=== PATIENT | male | born 1975 | race Caucasian/White ===

== ENCOUNTER 2020-04-08 09:58 | Emergency (ER) | payer OTHER, SELFPAY ==
[2020-04-08 10:00] VITALS: BP 137/65; PULSE 86; RESP 18; TEMP 36.8; O2SAT 99; BMI 32.5
--- NOTE | 2020-04-08 10:03 | XR_ITS ---
PROCEDURE: XR FINGER LT MIN 2V CLINICAL INDICATION: left 5th digit pain, after moving heavy object COMPARISON: No exams were available for comparison FINDINGS: No fracture or dislocation. No lytic or blastic change. There is normal mineralization. The joint spaces are well-preserved. No significant degenerative/arthritic changes. No erosive changes evident. Other findings:None. IMPRESSION: No acute findings. Dictated by: Les Morgan MD 04/08/2020 10:50 Les Morgan MD in [place] 04/08/2020 10:50
--- NOTE | 2020-04-08 10:03 | HMH.EDUPEXT ---
ED Disposition Clinical Impression: Finger laceration Qualifiers: Encounter type: initial encounter Finger: little finger Damage to nail status: without damage Foreign body presence: without foreign body Laterality: right Qualified Code(s): S61.216A - Laceration without foreign body of right little finger without damage to nail, initial encounter Disposition: Home, Self-Care Condition on Discharge: Good Instructions: DI for Laceration Repair -- Finger Additional Instructions: Follow-up with your primary care provider within 2 to 3 days for wound and mobility check. Return to the emergency department for any fever or signs of infection, foul-smelling drainage, increasing pain, other acute new concerns. Sutures to be removed in 7-10 days. Referrals: Daniel Chilel [Primary Care Provider] - 3 days - Critical Care Critical Care Time: No Attestation: On , the high probability of a clinically significant, sudden or life threatening deterioration of the following system(s) required my full and direct attention, intervention and personal management. The time I documented below is in addition to time spent performing reported procedures but includes the following listed in this critical care notation. Medical Decision Making - Medical Records Medical records reviewed: Yes: I reviewed the patient's medical records. - Lg Inquiry Pt receiving controlled substance: No Vital Signs: 04/08/20 10:00 Temperature 98.3 F Temperature Source Oral Pulse Rate [Left Radial] 86 Respiratory Rate 18 Blood Pressure [Right Arm] 137/65 Blood Pressure Mean [Right Arm] 89 Blood Pressure Source [Right Arm] Automatic Cuff Blood Pressure Position [Right Arm] Sitting 02 Sat by Pulse Oximetry 99 Oxygen Delivery Method Room Air Orders (Tests/Meds): ED MEDICATIONS Discontinued Medications Generic Name Dose Route Start Last Admin Trade Name Freq PRN Reason Stop Dose Admin Tetanus/Reduced Diphtheria/Acell Pertussis 0.5 ml 04/08/20 10:10 Adacel Tdap 0.5ml Syringe IM 04/08/20 10:11 .ONCE ONE ORDERS Category Date Time Status Finger XR left minimum 2 views [XR finger LT min 2V] Exams 04/08/20 10:03 Taken Stat - Radiology Data #1 Image(s): Finger(s)/Thumb Image Reviewed: Yes I reviewed the patient's radiology image Preliminary Findings: No Fracture Seen Medical Decision Narrative: Patient with laceration to the right fifth digit. No apparent tendon involvement at this time. Repaired as below. Advised to follow-up with primary care provider for wound/mobility check in the next 2 to 3 days and suture removal within 7 to 10 days. Upper Extremity HPI - General Stated Complaint: ao04/08/20 right hand pinkie Time Seen by Provider: 04/08/20 10:03 Mode of Arrival: Ambulatory Source of Information: Patient Limitations: No Limitations - History of Present Illness HPI narrative: This is a 44-year-old [id number] male who presents to the emergency department for laceration to the left small finger on the radial aspect. Injury occurred just prior to arrival. Unknown tetanus status. He was lifting a large cooler when his hand became crushed under the cooler and he cut his hand on a metal piece, sustained the laceration. - Related Data Home Medications Medication Instructions Recorded Confirmed lisinopril 20 mg tablet 20 mg PO QDAY 08/26/17 04/08/20 Allergies Allergy/AdvReac Type Severity Reaction Status Date / Time No Known Allergies Allergy Verified 10/23/18 13:09 [facility] History - Hepatitis A Screen Attestation statement:: This patient has been screened for Hepatitis A risk factors. I have reviewed the patient's past medical history: Yes Medical History: Reports:: Hypertension Other Surgeries: Yes: No Previous Surgery, Other Comment: Oral Surgery (wisdom teeth) - Social History Smoking Status: Never smoker Alcohol Intake: never Substance Use Type: other Occupat
[2020-04-08 11:11] VITALS: BP 137/65; PULSE 86; RESP 18; TEMP 36.8; O2SAT 99
== END 2020-04-08 11:12 | disposition home or self-care (01) ==
PROVIDERS: Emergency Provider Emergency Medicine; PCP Internal Medicine
DX: S61.216A Laceration without foreign body of right little finger without damage to nail, initial encounter (principal); Z23 Encounter for immunization; I10 Essential (primary) hypertension; W26.8XXA Contact with other sharp object(s), not elsewhere classified, initial encounter; Y99.0 Civilian activity done for income or pay
CPT/HCPCS: 12001; 73140; 90471; 90715; 99282

== ENCOUNTER 2020-07-24 15:00 | Outpatient (RCR) | payer BC, SELFPAY | END 2020-07-24 15:05 | disposition home or self-care (01) | LOC: PT 15:00 | PROVIDERS: PCP Internal Medicine; Visit Provider Orthopaedic Surgery Adult Reconstructive Orthopaedic Surgery | DX: Z96.642 Presence of left artificial hip joint; M25.552 Pain in left hip | CPT/HCPCS: 97010; 97014; 97110; 97140; 97163; 97164; G0283 ==

== ENCOUNTER 2021-03-08 17:29 | Observation (INO) | payer BC, SELFPAY ==
[2021-03-08] VITALS (7 sets, daily range): BP systolic 103–133; BP diastolic 58–79; PULSE 76–87; RESP 13–18; TEMP 36.7–38.1; O2SAT 97–100; BMI 33.9; BMI 35.4
--- NOTE | 2021-03-08 17:36 | ECG_ITS ---
APPROVED REPORT Exam: Resting ECG HR:73 bpm ECG Measurements Heart Rate 73 AXES GA 148 P 31 QRSd 114 QRS 47 QT 364 T 30 QTc 401 Conclusion Normal sinus rhythm Normal ECG Electronically signed by : Ciro Hayes, 03/09/2021 20:40:25
--- NOTE | 2021-03-08 17:37 | CT_ITS ---
PROCEDURE INFORMATION: Exam: CT Head Without Contrast Exam date and time: 03/08/2021 5:37 PM Age: 45 years old Clinical indication: Syncope and collapse TECHNIQUE: Imaging protocol: Computed tomography of the head without contrast. Radiation optimization: All CT scans at this facility use at least one of these dose optimization techniques: automated exposure control; mA and/or kV adjustment per patient size (includes targeted exams where dose is matched to clinical indication); or iterative reconstruction. COMPARISON: No relevant prior studies available. FINDINGS: Brain: No large territorial infarction. No hemorrhage. No mass effect or midline shift. Cerebral ventricles: No ventriculomegaly. Paranasal sinuses: Mucosal thickening of the paranasal sinuses. No air fluid level. Mastoid air cells: Visualized mastoid air cells are well aerated. Bones/joints: No acute fracture. Soft tissues: No significant soft tissue abnormality. IMPRESSION: No acute findings.
[2021-03-08 17:54] LABS: Coronavirus 19, PCR Not Detected (NotDetected); Influenza A, PCR Not Detected (NotDetected); Influenza B, PCR Not Detected (NotDetected)
--- NOTE | 2021-03-08 18:00 | HMH.EDGENADL ---
ED Disposition Clinical Impression: MARY ANN (acute kidney injury), Abnormal EKG Syncope Qualifiers: Syncope type: unspecified Qualified Code(s): R55 - Syncope and collapse Disposition: Admitted as Observation Condition on Discharge: Good Referrals: Daniel Chilel [Primary Care Provider] - Time of Disposition: 19:11 - Critical Care Critical Care Time: No Attestation: On 03/08/21, the high probability of a clinically significant, sudden or life threatening deterioration of the following system(s) required my full and direct attention, intervention and personal management. The time I documented below is in addition to time spent performing reported procedures but includes the following listed in this critical care notation. Medical Decision Making - Medical Records Medical records reviewed: Yes: I reviewed the patient's medical records. - Lg Inquiry Pt receiving controlled substance: No Vital Signs: 03/08/21 17:31 Temperature 98.4 F Temperature Source Oral Pulse Rate [Right Radial] 87 Respiratory Rate 18 Blood Pressure [Right Arm] 118/79 Blood Pressure Mean [Right Arm] 92 Blood Pressure Source [Right Arm] Automatic Cuff Blood Pressure Position [Right Arm] Sitting 02 Sat by Pulse Oximetry 99 Oxygen Delivery Method Room Air - Lab Data Lab results reviewed: Yes: I reviewed the patient's lab results. Lab Results 03/08/21 17:43: SARS-CoV-2 (PCR) Not detected, Influenza A Untype (PCR) Not detected, Influenza Type B (PCR) Not detected 03/08/21 17:58: WBC 12.3 H, RBC 5.15, Hgb 15.1, Hct 43.2, MCV 83.8, MCH 29.3, MCHC 35.0, RDW 13.1, Plt Count 161, MPV 8.8, Neut % (Auto) 85.2 H, Lymph % (Auto) 7.5 L, Young % (Auto) 3.4, Eos % (Auto) 3.7, Baso % (Auto) 0.3, Neut # (Auto) 10.5 H, Lymph # (Auto) 0.9, Young # (Auto) 0.4, Eos # (Auto) 0.5 H, Baso # (Auto) 0.0, Total Counted 100, Neutrophils % (Manual) 82 H, Lymphocytes % (Manual) 13, Monocytes % (Manual) 3, Eosinophils % (Manual) 2, Platelet Estimate Normal, RBC Morphology Normal 03/08/21 17:58: Sodium 137, Potassium 3.6, Chloride 100, Carbon Dioxide 28, Anion Gap 12.6, BUN 15, Creatinine 1.30 H, Estimated Creat Clear 113, Estimated GFR 59, Est GFR ( Amer) 72, Glucose 148 H, Calcium 8.9, Total Bilirubin 1.1, AST 28, ALT 19, Alkaline Phosphatase 69, Troponin I < 0.01, Total Protein 7.4, Albumin 4.6, Globulin 2.8, Albumin/Globulin Ratio 1.6 Result diagrams: 03/08/21 17:58 03/08/21 17:58 Orders (Tests/Meds): ED MEDICATIONS Generic Name Dose Route Start Last Admin Trade Name Freq PRN Reason Stop Dose Admin Lactated Ringer's 1,000 mls @ 999 mls/hr 03/08/21 18:45 Lactated Ringer's 1000 Ml Bag IV 03/08/21 19:45 .Q1H1M [facility] ORD[facility] Category Date Time Status Drug Screen,Urine Stat Lab 03/08/21 17:37 Ordered Troponin I Q3H Lab 03/08/21 20:45 Ordered Troponin I Q3H Lab 03/08/21 23:45 Ordered Urinalysis and Microscopic Stat Lab 03/08/21 17:36 Ordered - CT Data CT Scan: Head Time Received: 17:[address] Reviewed: Yes: I have reviewed the patient's CT results Preliminary Findings: Normal/NAD - ECG Data Tracing #1 I reviewed this ECG and interpreted as documented below: Rhythm 73 bpm, normal intervals, no ectopy, mild ST elevation in V1 and V2, mild depression in lead III. Abnormal EKG ECG initial impression date: 03/08/21 ECG initial impression time: 17:56 Medical Decision Narrative: 45yo M evaluated for syncope. Differential diagnosis includes was not limited to: TIA/CVA, arrhythmia, GA, electrolyte abnormality, brain mass. Patient in no acute distress on initial evaluation. Neurologically he is completely normal. Sent for CT of the head, EKG is obtained and reviewed as above. Routine laboratory studies were ordered. Laboratory studies and CT head are unremarkable, including a Covid swab. Recommend admission for observation given syncopal episode. Also patient does have some abnormal findings on his EKG. Findings discussed with
[2021-03-08 18:08] LABS: Basophils % 0.3 % (0.1-2.0); Eosinophils # 0.5 K/mm3 (0.0-0.4); Eosinophils % 3.7 % (0.1-12.0); Hematocrit 43.2 % (42.0-52.0); Hemoglobin 15.1 g/dL (14.1-18.0); Lymphocytes # 0.9 K/mm3 (0.7-4.5); Lymphocytes % 7.5 % (10-50); Mean Corpuscular Hemoglobin 29.3 pg (27.0-31.2); Mean Corpuscular Volume 83.8 fl (80-94); Mean Platelet Volume 8.8 fl (7.4-10.4); Monocytes # 0.4 K/mm3 (0.1-1.0); Monocytes % 3.4 % (1.7-9.3); Neutrophils # 10.5 K/mm3 (1.8-7.8); Neutrophils % 85.2 % (37.0-80.0); Platelet Count 161 K/mm3 (142-424); Red Blood Count 5.15 M/mm3 (4.60-6.20); Red Cell Distribution Width 13.1 % (11.5-17.5); White Blood Count 12.3 K/mm3 (4.8-10.8)
[2021-03-08 18:10] LABS: MANUAL DIFFERENTIAL MANUAL DIFFERENTIAL (MANUAL DIFF)
[2021-03-08 18:18] LABS: Eosinophils % 2 % (0-3); Lymphocytes % 13 % (10-50); Monocytes % 3 % (2-9); Neutrophils % 82 % (42-76); Platelet Estimate Normal; RBC Morphology Normal; Total Cells Counted 100
[2021-03-08 18:23] LABS: Alanine Aminotransferase 19 U/L (12-78); Albumin Level 4.6 g/dl (3.5-5.0); Albumin/Globulin Ratio 1.6 (1.1-1.8); Alkaline Phosphatase 69 U/L (38-126); Aspartate Amino Transferase 28 U/L (17-59); Bilirubin,Total 1.1 mg/dl (0.2-1.3); Blood Urea Nitrogen 15 mg/dl (9-20); Calcium 8.9 mg/dl (8.4-10.2); Carbon Dioxide 28 mmol/L (22.0-30.0); Creatinine Clearance Estimated 113 mL/min (50-200); Estimated Glomerular Filt Rate 59 ml/min (>60); GFR (African American) 72 ML/MIN (>60); Globulin 2.8 g/dL (1.3-3.2); Glucose 148 mg/dl (74-100); Potassium 3.6 mmoL/L (3.5-5.1); Sodium 137 mmol/L (136-145); Total Protein,Serum 7.4 g/dl (6.3-8.2)
[2021-03-08 18:32] LABS: Anion Gap 12.6 mEq/L (5-15); Chloride 100 mmol/L (98-107)
[2021-03-08 18:35] LABS: Troponin I < 0.01 ng/ml (0.00-0.034)
--- NOTE | 2021-03-08 19:21 | PC.NURSE ---
Attempted to call report to 2nd nh, no answer. Will call back.
--- NOTE | 2021-03-08 19:45 | PC.NURSE ---
gave report to Princess Walden RN
--- NOTE | 2021-03-08 19:56 | PC.NURSE ---
PT ARRIVED TO FLOOR VIA W/C FROM ED W/STAFF AT 1955
[2021-03-08 21:29] LABS: Troponin I < 0.01 ng/ml (0.00-0.034)
[2021-03-08 21:40] LABS: Microscopic, Urine URINE MICROSCOPIC (MICROSCOPIC)
[2021-03-08 21:43] LABS: Appearance,Urine CLEAR (Clear); Bilirubin,Urine Negative (Negative); Blood, Urine Negative (Negative); Color,Urine YELLOW (Yellow); Glucose,Urine (UA) Negative (Negative); Ketones,Urine Negative (Negative); Leukocyte Esterase,Urine Negative (Negative); Nitrate,Urine Negative (Negative); Protein,Urine Negative (Negative); Urobilinogen,Urine 0.2 EU/dl (0.2)
[2021-03-08 21:59] LABS: Barbiturates Screen,Urine Negative ng/ml (<200); Benzodiazepines Screen,Urine Negative ng/ml (<200)
[2021-03-08 22:00] LABS: Amphetamine/Metha Screen,Urine Negative ng/ml (<1000)
[2021-03-08 22:01] LABS: Cannabinoid Screen,Urine Negative ng/ml (<50); Cocaine Screen,Urine Negative ng/ml (<300)
[2021-03-08 22:02] LABS: Methadone Screen,Urine Negative ng/ml (<300); Opiate Screen,Urine Negative ng/ml (<300)
[2021-03-08 22:03] LABS: Phencyclidine Screen,Urine Negative ng/ml (<25)
[2021-03-09] VITALS: BP 138/68; PULSE 64; PULSE 70; RESP 16; TEMP 37.2; O2SAT 98
[2021-03-09 00:46] LABS: Troponin I < 0.01 ng/ml (0.00-0.034)
[2021-03-09 04:00] VITALS: BP 107/52; PULSE 70; RESP 18; TEMP 36.6; O2SAT 97
[2021-03-09 05:00] VITALS: BMI 74.3
--- NOTE | 2021-03-09 06:36 | PC.NURSE ---
Patient voiced no concerns this shift. No s/s of acute distress noted, call light within reach, bed at lowest level for safety, will continue to monitor.
[2021-03-09 07:46] VITALS: BP 118/74; PULSE 79; RESP 18; TEMP 36.5; O2SAT 98
[2021-03-09 07:52] LABS: Basophils % 0.3 % (0.1-2.0); Chloride 102 mmol/L (98-107); Eosinophils # 0.2 K/mm3 (0.0-0.4); Eosinophils % 2.5 % (0.1-12.0); Hematocrit 41.5 % (42.0-52.0); Hemoglobin 14.5 g/dL (14.1-18.0); Lymphocytes # 1.3 K/mm3 (0.7-4.5); Lymphocytes % 15.1 % (10-50); Mean Corpuscular HGB Conc 34.8 g/dL (31.8-35.4); Mean Corpuscular Hemoglobin 29.1 pg (27.0-31.2); Mean Corpuscular Volume 83.5 fl (80-94); Mean Platelet Volume 8.6 fl (7.4-10.4); Monocytes # 0.6 K/mm3 (0.1-1.0); Monocytes % 6.5 % (1.7-9.3); Neutrophils # 6.4 K/mm3 (1.8-7.8); Neutrophils % 75.5 % (37.0-80.0); Platelet Count 153 K/mm3 (142-424); Red Blood Count 4.97 M/mm3 (4.60-6.20); Red Cell Distribution Width 13.2 % (11.5-17.5); Sodium 140 mmol/L (136-145); White Blood Count 8.5 K/mm3 (4.8-10.8)
[2021-03-09 07:53] LABS: Potassium 3.9 mmoL/L (3.5-5.1)
[2021-03-09 07:55] LABS: Blood Urea Nitrogen 15 mg/dl (9-20); Creatinine Clearance Estimated 72 mL/min (50-200); Estimated Glomerular Filt Rate 54 ml/min (>60); GFR (African American) 66 ML/MIN (>60)
[2021-03-09 07:56] LABS: Anion Gap 8.9 mEq/L (5-15); Calcium 9.1 mg/dl (8.4-10.2); Carbon Dioxide 33 mmol/L (22.0-30.0); Glucose 108 mg/dl (74-100)
--- NOTE | 2021-03-09 07:57 | HMH.PHAVTE ---
[facility] Pharmacy VTE Monitoring - Patient Demographics Admission date: 03/08/21 Report Date: 03/09/21 Time: 07:57 Allergies/Adverse Reactions: Patient Allergies No Known Allergies Allergy (Verified 10/10/20 08:33) Height: 1.83 m Weight: 249.1 kg Patient Problems: Current Active Problems Syncope (Acute) MARY ANN (acute kidney injury) (Acute) Abnormal EKG (Acute) - VTE Risk Labs: VTE Related Lab Results Hgb 14.5 g/dL (14.1-18.0) 03/09/21 07:27 Hct 41.5 % (42.0-52.0) L 03/09/21 07:27 Plt Count 153 K/mm3 (142-424) 03/09/21 07:27 BUN 15 mg/dl (9-20) 03/09/21 07:27 Creatinine 1.40 mg/dl (0.66-1.25) H 03/09/21 07:27 Estimated Creat Clear 72 mL/min (50-200) 03/09/21 07:27 - Prophylaxis VTE Prophylaxis Ordered?: Yes Types of VTE Prophylaxis: IPCS Thigh High, Pharmacological Location of Applied Device: Bilateral Lower Extremeties Pharmacologic Type: Enoxaparin
--- NOTE | 2021-03-09 07:57 | HMH.PHAINT ---
MEDICATION RECONCILIATION COMPLETED ON PATIENT USING EXTERNAL FILL HISTORY FROM PHARMACY. -JOHANA GARY, CYNDID
[2021-03-09 08:00] VITALS: PULSE 71
[2021-03-09 12:00] VITALS: PULSE 67
--- NOTE | 2021-03-09 12:45 | HMH.HPDC ---
General - General Admission date:: 03/08/21 Discharge date: 03/09/21 *Admission Date: 03/08/21 *Chief complaint: syncope *History of present illness: 45yo M with past medical history significant for hypertension reports emergency department after syncopal episode. Patient reports he did not feel well yesterday and today with some chest congestion but denies any fever. He states he mowed the yard on Wednesday and it is not uncommon for him to have some congestion following mowing. Patient reports he slept most of the day secondary to being fatigued. When he finally woke up at 1700 his daughter found a tick on the family dog so he went to pull the tick off and after pulling the tick off, had a full syncopal episode. He states he felt lightheaded and like you were going to be sick and then woke up on the ground. Denies any sensation of heart beating too fast/too slow/skipping beats. Denies previous cardiac history. Reports 1 previous episode of syncope while having a wound sutured in the emergency department. Denies any injury. Medical Decision Narrative: 45yo M evaluated for syncope. Differential diagnosis includes was not limited to: TIA/CVA, arrhythmia, CT, electrolyte abnormality, brain mass. Patient in no acute distress on initial evaluation. Neurologically he is completely normal. Sent for CT of the head, EKG is obtained and reviewed as above. Routine laboratory studies were ordered. Laboratory studies and CT head are unremarkable, including a Covid swab. Recommend admission for observation given syncopal episode. Also patient does have some abnormal findings on his EKG. Findings discussed with Dr. Alvarez who agrees with admission for observation. CT the brain is normal [facility] History Medical History: Reports:: Hypertension Denies:: Cancer, Diabetes Mellitus Type 1, Diabetes Mellitus Type 2, MRSA *Have you ever received a pneumonia vaccine?: No *Have you received a flu vaccine this season?: No (did'nt take due to having surgery during that time & was advised against it) Laterality Cases: Left: Total Hip Replacement Other Surgeries: Yes: No Previous Surgery, Other Amputation: No Fractures: No - *Social History Last grade of school completed: Advanced degree Smoking Status: Never smoker Alcohol Intake: never Alcohol Intake Frequency:: holidays/special occasions only Substance Use Type: denies use *Occupational Status:: employed Housing: house Household Members: spouse, children *Travel in the last 8 weeks: Inside the [facility] Family Hx:: Asthma, Cancer, Diabetes, Heart Attack, Hypertension, Stroke Review of Systems - Constitutional Reports malaise - Eyes Denies change in vision - ENT Denies abnormal hearing, Denies difficulty swallowing - *Cardiovascular Reports lightheadedness, Denies chest pain - *Respiratory Reports chest congestion - *Gastrointestinal Denies abdominal pain - *Genitourinary Denies difficulty urinating - *Musculoskeletal Denies joint pain - Integumentary/Breasts Denies yellowing of the skin - *Neurologic Reports unsteadiness, Reports dizziness, Denies abnormal walking, Denies abnormal hearing, Denies behavioral changes, Denies confusion, Denies seizure-like activity, Denies localized weakness - Psychiatric Denies behavioral changes - Endocrine Reports excessive sweating - Hematologic/Lymphatic Denies easy bleeding, Denies easy bruising - Allergic/Immunologic Denies hives, Denies wheezing Exam Vital signs and Labs for Last 24 Hours: Temp Pulse Resp BP Pulse Ox 97.7 F 79 18 118/74 98 03/09/21 07:46 03/09/21 07:46 03/09/21 07:46 03/09/21 07:46 03/09/21 07:46 Laboratory Results - last 24 hr 03/08/21 17:43: SARS-CoV-2 (PCR) Not detected, Influenza A Untype (PCR) Not detected, Influenza Type B (PCR) Not detected 03/08/21 17:58: WBC 12.3 H, RBC 5.15, Hgb 15.1, Hct 43.2, MCV 83.8, MCH 29.3, MCHC 35.0, RDW 13.1, Plt Count 161, MPV 8.8, Neut
== END 2021-03-09 13:35 | disposition home or self-care (01) ==
LOC: ER 19:11 → 2ND 19:31
PROVIDERS: Admitting Provider Family Medicine; Emergency Provider Family Medicine; PCP Internal Medicine; Visit Provider Family Medicine
DX: R55 Syncope and collapse (principal); N17.9 Acute kidney failure, unspecified; Z20.822 Contact with and (suspected) exposure to COVID-19; I10 Essential (primary) hypertension; Z96.642 Presence of left artificial hip joint
CPT/HCPCS: 36415; 70450; 80048; 80053; 80305; 81001; 84484; 85007; 85025; 93005; 96365; 99283; G0378; U0003

== ENCOUNTER 2023-08-13 13:32 | Outpatient (CLI) | payer BC, SELFPAY ==
[2023-08-13 14:17] LABS: Basophils % 0.7 % (0.1-2.0); Eosinophils # 0.3 K/mm3 (0.0-0.4); Eosinophils % 5.1 % (0.1-12.0); Hematocrit 42.7 % (42.0-52.0); Hemoglobin 14.8 g/dL (14.1-18.0); Lymphocytes # 1.2 K/mm3 (0.7-4.5); Mean Corpuscular HGB Conc 34.5 g/dL (31.8-35.4); Mean Corpuscular Hemoglobin 30.5 pg (27.0-31.2); Mean Corpuscular Volume 88.2 fl (80-94); Mean Platelet Volume 10.2 fl (7.4-10.4); Monocytes # 0.3 K/mm3 (0.1-1.0); Neutrophils # 3.2 K/mm3 (1.8-7.8); Neutrophils % 64.3 % (37.0-80.0); Platelet Count 168 K/mm3 (142-424); Red Blood Count 4.85 M/mm3 (4.60-6.20); Red Cell Distribution Width 13.7 % (11.5-17.5); White Blood Count 5.1 K/mm3 (4.8-10.8)
[2023-08-13 14:38] LABS: Chloride 105 mmol/L (98-107); Potassium 4.4 mmoL/L (3.5-5.1); Sodium 140 mmol/L (136-145)
[2023-08-13 14:41] LABS: Alanine Aminotransferase 27 U/L (12-78); Albumin Level 4.5 g/dl (3.5-5.0); Albumin/Globulin Ratio 1.8 (1.1-1.8); Alkaline Phosphatase 64 U/L (38-126); Anion Gap 11.4 mEq/L (5-15); Aspartate Amino Transferase 34 U/L (17-59); Bilirubin,Total 0.5 mg/dl (0.2-1.3); Blood Urea Nitrogen 27 mg/dl (9-20); Calcium 9.2 mg/dl (8.4-10.2); Carbon Dioxide 28 mmol/L (22.0-30.0); Chol/HDL Ratio 8.2 (1-3.5); Cholesterol 270 mg/dl (140-200); Estimated Glomerular Filt Rate 54 ml/min (>60); GFR (African American) 65 ML/MIN (>60); Globulin 2.5 g/dL (1.3-3.2); Glucose 83 mg/dl (74-100); HDL Cholesterol 33 mg/dl (40-60); Triglycerides 131 mg/dl (30-150); VLDL Cholesterol 26 mg/dL (0-40)
[2023-08-13 14:52] LABS: Direct LDL Cholesterol 167.74 mg/dL (100-129)
[2023-08-13 15:27] LABS: Prostate Specific Ag Screen 1.1 ng/ml (0.0-4.0)
== END 2023-08-13 23:59 ==
LOC: LAB.DROPOF 13:35
PROVIDERS: PCP Internal Medicine; Visit Provider Internal Medicine
DX: Z12.5 Encounter for screening for malignant neoplasm of prostate (principal); I10 Essential (primary) hypertension; E78.5 Hyperlipidemia, unspecified
CPT/HCPCS: 80053; 80061; 85025; G0103

== ENCOUNTER 2023-09-16 16:00 | Outpatient (RCR) | payer OTHER, BC, SELFPAY | END 2023-09-16 17:00 | disposition home or self-care (01) | LOC: PT 16:00 | PROVIDERS: PCP Internal Medicine; Visit Provider Family Medicine | DX: M25.562 Pain in left knee; S82.142D Displaced bicondylar fracture of left tibia, subsequent encounter for closed fracture with routine healing | CPT/HCPCS: 97014; 97016; 97110; 97140; 97163; 97164; 97530; G0283 ==

== ENCOUNTER 2023-11-26 07:21 | Day surgery (SDC) | payer BC, SELFPAY ==
[2023-11-24 12:52] VITALS: BMI 34.5
[2023-11-26] MEDS: LACTATED RINGERS 1000ML 1,000 ML 25 ML IV (07:33)
[2023-11-26 07:37] VITALS: BP 125/78; PULSE 83; RESP 18; O2SAT 98
--- NOTE | 2023-11-26 08:21 | EXP.ANES.CKL ---
[facility] Disclaimer: The information contained in this section may have been updated after the patient was seen, as this information can be updated by other users. Medical History History of gastroesophageal reflux (GERD) Hyperlipidemia Hypertension Edema Surgical History History of left hip replacement Family History Grandmother Dementia Grandfather Heart disease Family/Other Diabetes Other Hypertension Social History Smoking Status: Never smoker alcohol intake: never substance use type: denies use current occupational status: employed Travel in the last 8 weeks: Inside the [place] household members: spouse and children housing: house current occupation: school system caffeine: Yes [facility] Anesthesia Checklist Patient Identification Patient Identification: Arm Band Structural Data Admitted From: Home Planned Operative Procedure/s: Colonoscopy Consent for Planned Operative Procedure(s) Verified: Yes Verified Documents: Surgical Consent and History and Physical NPO Status Verified Time NPO: 00:00 Additional verifications Anesthesia Reactions: No Airway Assessment Mallampati Score:: Class II C-Spine Mobility Assessed: Yes TMJ Mobility Assessed: Yes Dentition: Good Dentition Neurological Assessment Level of Consciousness: Awake and Alert Anesthesia Plan Anesthesia Risk discussed: Yes Anesthesia Plan: Verified ASA Class: II Anesthesia Type: MAC
[2023-11-26 08:24] VITALS: O2SAT 98
--- NOTE | 2023-11-26 08:58 | HMH.SCOPE ---
Procedure: Date: 11/26/23 Patient Date of :: 1975 Procedure Performed:: Total colonoscopy to terminal ileum with polypectomy x 2 using biopsy Indications:: Patient is a 48-year-old male referred by Dr. Chilel for initial screening colonoscopy. Performing Provider:: Sanket Barnett MD Referring Provider:: Daniel Chilel MD Sedation:: MAC sedation Procedure:: Patient history was obtained and appropriate physical examination was performed. Patient's medications and allergies were reviewed. Informed consent was obtained after explaining the benefits, alternatives, and risks of the procedure including, but not limited to, bleeding, perforation, missed lesions, and adverse reaction to anesthesia medications. Patient was transported to endoscopy procedure room. Patient was connected to monitoring devices. Throughout the procedure the patient's blood pressure, pulse, and oxygen saturations were monitored continuously. Patient identification and planned procedure were verified by the staff. Patient was positioned in lateral decubitus position. Digital anorectal exam was performed. Variable stiffness Olympus colonoscope was inserted and advanced under direct visualization to the cecum. Adequacy of the colonic preparation was noted. The colonoscope was advanced a short distance into the terminal ileum. The colonoscope was then slowly withdrawn while carefully examining the color, texture, anatomy, and integrity of the mucosoa circumferentially. Within the rectum retroflexion was performed. Colonoscope was then withdrawn. . Impression: There was some gaseous opaque somewhat particulate liquid throughout the colon. High-volume irrigation and suctioning was performed. Upon advancement of the colonoscope there was a tiny diminutive subtle probable lymphoid aggregate polyp in the transverse colon removed with biopsy forceps. In the ascending colon there was a tiny likely early adenomatous polyp removed in its entirety with cold biopsy forceps. . Findings:: Polyps as noted above Recommendations:: Likely repeat colonoscopy 5 years given the polyps pending pathology Complications:: None immediately apparent Estimated blood obtained (mL): 1 Colonoscopy Component Colonoscopy Component Was a colonoscopy performed during today's procedure?: Yes Recommended follow up colonoscopy of at least 10 years?: No If no, follow up colonoscopy recommended in ___ years?: 5 Reason for not recommending >/= 10 yr follow-up interval?: Polyps
[2023-11-26 09:00] VITALS: BP 112/66; PULSE 66; RESP 14; TEMP 36.8; O2SAT 97
--- NOTE | 2023-11-26 09:02 | HMH.SCOPE ---
Procedure: Date: 11/26/23 Patient Date of :: 1975 Performing Provider:: Sanket Barnett MD
[2023-11-26 09:10] VITALS: BP 120/70; PULSE 65; RESP 16; O2SAT 97
[2023-11-26 09:20] VITALS: BP 112/65; PULSE 61; RESP 16; O2SAT 96
[2023-11-26 09:27] VITALS: BP 111/64; PULSE 59; RESP 16; TEMP 36.6; O2SAT 96
== END 2023-11-26 09:32 | disposition home or self-care (01) ==
PROVIDERS: PCP Internal Medicine; Visit Provider Surgery
PROC: 0DJD8ZZ Inspection of Lower Intestinal Tract, Via Natural or Artificial Opening Endoscopic (ICD-10-PCS; CPT 45380; principal; 2023-11-26 08:30)
DX: Z12.11 Encounter for screening for malignant neoplasm of colon (principal); K63.5 Polyp of colon; D12.2 Benign neoplasm of ascending colon
CPT/HCPCS: 45380; J2704